=== PATIENT | male | born 1970 | race Caucasian/White ===

== ENCOUNTER 2019-06-18 09:09 | Day surgery (SDC) | payer BC ==
[2019-06-18] MEDS ORDERED: Dextrose 5%-Lactated Ringers 1,000 ML IV SCH (09:45)
[2019-06-18] MEDS ORDERED: Propofol 200 MG/20 ML SDV ONE (09:55)
[2019-06-18] MEDS ORDERED: Midazolam 1 MG/ML 2 ML SDV ONE (09:55)
[2019-06-18] MEDS ORDERED: fentaNYL 100 MCG/2 ML SDV ONE (09:55)
--- NOTE | 2019-07-01 14:42 | OR ---
DATE OF PROCEDURE: 06/18/2019 SURGEON: Terrance Sheriff MD PREOPERATIVE DIAGNOSIS: Positive Cologuard examination. POSTOPERATIVE DIAGNOSIS: Two small rectal polyps. OPERATIVE PROCEDURE: Flexible colonoscopy with polypectomy by snare technique x2 (07052). ANESTHESIA: IV sedation. INDICATIONS FOR PROCEDURE: This is a 48-year-old male presenting with positive Cologuard exam, and therefore he is to undergo a colonoscopy with biopsies and/or polypectomy as indicated. Potential risks including bleeding and perforation were discussed, and the patient wishes to proceed. DETAILS OF PROCEDURE: The patient was taken to the operating room and placed in a left lateral decubitus position. IV sedation was administered, after which the initial digital rectal exam was performed and was unremarkable. Colonoscope was then passed into the rectum with retroflexion revealing uncomplicated hemorrhoidal columns. Scope was then passed eventually to the cecum. The prep was only fair with there being quite a bit in the way of some solid stool obscuring some surfaces of the bowel. This will be enough that the polyps up to 3 to 4 mm might be missed by today's exam. To that level, there was no diverticular disease, no areas of colitis. 2 small polyps, 1 at 15 cm from the dentate line, one 5 cm from the dentate line, i.e. in the upper and lower rectum. Apart from that, no additional signs of neoplasia were seen. Both polyps were then encircled with cautery snare and excised and sent as separate specimens. Good hemostasis was noted at the polypectomy site and the patient was taken to the recovery room in satisfactory condition. Assuming these are 5 polyps, one would probably advise the patient to have a repeat colonoscopy in 2 years erring little bit on the earlier side due to the relatively poor prep that was seen today. Terrance Sheriff MD /[id number]
== END 2019-06-18 12:14 | disposition home or self-care (01) ==
LOC: JP.SDS 09:09
PROVIDERS: ATTEND Surgery
DX: K62.1 Rectal polyp (principal); I10 Essential (primary) hypertension; F17.200 Nicotine dependence, unspecified, uncomplicated
CPT/HCPCS: 45385; 88305; J2250; J2704; J3010; J7121